=== PATIENT | female | born 1950 | race Caucasian/White ===

== ENCOUNTER → 2016-06-04 | Outpatient (CLI) | payer MEDICARE, BC ==
[~2016-06-04] MED LIST: CEPHALEXIN500 M1 PO; FLUTICASON0.05 MG/AC IN; ZYRTEC10 M3 PO
== END ==
LOC: LAB 09:26
DX: K62.5 Hemorrhage of anus and rectum (principal)

== ENCOUNTER → 2016-06-11 | Day surgery (SDC) | payer MEDICARE, BC | LOC: MSO 15:04 | DX: Z12.11 Encounter for screening for malignant neoplasm of colon (principal); R19.5 Other fecal abnormalities; K64.1 Second degree hemorrhoids | CPT/HCPCS: 00810; J3010; J7120 ==

== ENCOUNTER → 2016-08-20 | Outpatient (CLI) | payer MEDICARE, BC ==
[2015-12-25 12:06] VITALS: BP 112/76
== END ==
LOC: MAMMO 09:10
DX: Z12.31 Encounter for screening mammogram for malignant neoplasm of breast (principal)
CPT/HCPCS: G0202

== ENCOUNTER → 2016-08-20 | Outpatient (CLI) | payer MEDICARE, BC ==
[2015-12-25 12:06] VITALS: BP 112/76
== END ==
LOC: RAD 09:10
DX: M81.0 Age-related osteoporosis without current pathological fracture (principal); Z13.820 Encounter for screening for osteoporosis

== ENCOUNTER → 2016-09-26 | Outpatient (CLI) | payer MEDICARE, BC ==
[2015-12-25 12:06] VITALS: BP 112/76
== END ==
LOC: LAB 14:17
DX: Z78.9 Other specified health status (principal)

== ENCOUNTER → 2016-09-28 | Outpatient (CLI) | payer MEDICARE, BC ==
[2015-12-25 12:06] VITALS: BP 112/76
== END ==
LOC: LAB 16:44
DX: R50.81 Fever presenting with conditions classified elsewhere (principal); M79.1 Myalgia; W57.XXXA Bitten or stung by nonvenomous insect and other nonvenomous arthropods, initial encounter

== ENCOUNTER → 2017-10-07 | Outpatient (CLI) | payer MEDICARE, BC ==
[2015-12-25 12:06] VITALS: BP 112/76
== END ==
LOC: MAMMO 13:05
DX: Z13.820 Encounter for screening for osteoporosis (principal); M85.852 Other specified disorders of bone density and structure, left thigh; M85.851 Other specified disorders of bone density and structure, right thigh; M85.88 Other specified disorders of bone density and structure, other site

== ENCOUNTER → 2017-10-07 | Outpatient (CLI) | payer MEDICARE, BC ==
[2015-12-25 12:06] VITALS: BP 112/76
== END ==
LOC: MAMMO 13:00
DX: Z12.31 Encounter for screening mammogram for malignant neoplasm of breast (principal)

== ENCOUNTER → 2017-10-09 | Outpatient (CLI) | payer MEDICARE, BC ==
[2015-12-25 12:06] VITALS: BP 112/76
[2017-10-09 19:22] LABS: HEMATOCRIT 39.6 % (37.0-47.0); HEMOGLOBIN 13.2 g/dL (12.5-16.0); MEAN CELL VOLUME 90 fl (78-100); MEAN CORPUSCULAR HEMOGLOBIN 30 pg (27-31); MEAN CORPUSCULAR HGB CONC 33 g/dL (33-37); PLATELET COUNT 223 K/mm3 (130-400); RED BLOOD COUNT 4.41 M/mm3 (4.10-5.30); RED CELL DISTRIBUTION WIDTH 13.3 % (11.5-14.5); WHITE BLOOD COUNT 3.8 K/mm3 (4.8-10.8)
[2017-10-09 19:45] LABS: ALBUMIN 3.9 g/dL (3.5-5.0); BUN/CREATININE RATIO 22.8 (6.0-26.0); CALCIUM 10.6 mg/dL (8.4-10.2); POTASSIUM 4.1 mmol/L (3.6-5.0); TOTAL BILIRUBIN 0.5 mg/dL (0.2-1.3); TOTAL PROTEIN 7.3 g/dL (6.3-8.2)
[2017-10-09 22:32] LABS: LYMPHOCYTE 43 % (20-51); MONOCYTE 12 % (3-10); NEUTROPHILS 43 % (42-75)
== END ==
LOC: LAB 18:16
PROVIDERS: Nurse Practitioner Family
DX: R53.81 Other malaise (principal); M25.50 Pain in unspecified joint; S30.860A Insect bite (nonvenomous) of lower back and pelvis, initial encounter

== ENCOUNTER → 2018-10-06 | Outpatient (CLI) | payer MEDICARE, BC ==
[2015-12-25 12:06] VITALS: BP 112/76
== END ==
LOC: MAMMO 13:44
DX: Z12.31 Encounter for screening mammogram for malignant neoplasm of breast (principal)

== ENCOUNTER → 2019-02-18 | Outpatient (CLI) | payer MEDICARE, BC ==
[2019-01-04 10:20] VITALS: BP 154/84
== END ==
LOC: RAD 09:10
DX: R05 Cough (principal)

== ENCOUNTER → 2019-08-19 | Outpatient (CLI) | payer MEDICARE, BC ==
[2019-01-04 10:20] VITALS: BP 154/84
== END ==
LOC: LAB 09:08
DX: J02.9 Acute pharyngitis, unspecified (principal); Z95.2 Presence of prosthetic heart valve; W19.XXXA Unspecified fall, initial encounter

== ENCOUNTER → 2019-12-01 | Outpatient (CLI) | payer MEDICARE, BC ==
[2019-01-04 10:20] VITALS: BP 154/84
== END ==
LOC: RAD 08:29 → MAMMO 09:15
DX: M85.80 Other specified disorders of bone density and structure, unspecified site (principal)

== ENCOUNTER → 2019-12-01 | Outpatient (CLI) | payer MEDICARE, BC ==
[2019-01-04 10:20] VITALS: BP 154/84
== END ==
LOC: MAMMO 08:29
DX: Z12.31 Encounter for screening mammogram for malignant neoplasm of breast (principal); M81.0 Age-related osteoporosis without current pathological fracture

== ENCOUNTER → 2020-02-09 | Outpatient (CLI) | payer MEDICARE, BC ==
[2019-01-04 10:20] VITALS: BP 154/84
== END ==
LOC: LAB 08:06
DX: J02.9 Acute pharyngitis, unspecified (principal); J34.89 Other specified disorders of nose and nasal sinuses; Z20.828 Contact with and (suspected) exposure to other viral communicable diseases

== ENCOUNTER → 2020-02-17 | Outpatient (CLI) | payer MEDICARE, BC ==
[2019-01-04 10:20] VITALS: BP 154/84
[2020-02-17 07:22] LABS: ALBUMIN 4.4 g/dL (3.4-4.8); POTASSIUM 4.1 mmol/L (3.5-5.1)
[2020-02-17 07:23] LABS: CALCIUM 9.5 mg/dL (8.3-10.5)
[2020-02-17 07:24] LABS: TOTAL PROTEIN 7.6 g/dL (6.2-8.1)
[2020-02-17 07:26] LABS: TOTAL BILIRUBIN 0.6 mg/dL (0.2-1.2)
== END ==
LOC: LAB 07:02
PROVIDERS: Family Medicine
DX: E78.00 Pure hypercholesterolemia, unspecified (principal)

== ENCOUNTER → 2020-02-29 | Outpatient (CLI) | payer MEDICARE, BC ==
[2019-01-04 10:20] VITALS: BP 154/84
[2020-02-29 16:24] LABS: ALBUMIN 4.2 g/dL (3.4-4.8); POTASSIUM 3.7 mmol/L (3.5-5.1)
[2020-02-29 16:25] LABS: CALCIUM 9.5 mg/dL (8.3-10.5)
[2020-02-29 16:27] LABS: TOTAL PROTEIN 7.2 g/dL (6.2-8.1)
[2020-02-29 16:28] LABS: TOTAL BILIRUBIN 0.3 mg/dL (0.2-1.2)
[2020-02-29 16:32] LABS: DIRECT BILIRUBIN 0.1 mg/dL (0.0-0.5)
== END ==
LOC: LAB 15:56
PROVIDERS: Internal Medicine Endocrinology, Diabetes & Metabolism
DX: E78.00 Pure hypercholesterolemia, unspecified (principal); M81.8 Other osteoporosis without current pathological fracture

== ENCOUNTER 2020-10-29 21:58 | Emergency (ER) | payer MEDICARE, BC ==
[2020-10-29] MEDS ORDERED: PROSCAR PO (22:48)
[2020-10-29] MEDS ORDERED: ALDACTONE100 M1 PO (22:49)
[2020-10-29] MEDS ORDERED: CALCIUM + D3 E1 EACH PO (22:49)
[2020-10-29] MEDS ORDERED: CRESTOR 10MG10 MG PO (22:49)
[2020-10-29 23:24] LABS: URINE APPEARANCE CLOUDY; URINE COLOR BLOODY
[2020-10-29 23:25] LABS: PH-URINE 5.5 (5.0 - 8.0); URINE BILIRUBIN NEGATIVE (NEGATIVE); URINE BLOOD 250 ery/uL (NEGATIVE); URINE GLUCOSE NEGATIVE (NEGATIVE); URINE KETONE 1+ (NEGATIVE); URINE LEUKOCYTE ESTERASE 2+ (NEGATIVE); URINE NITRATE NEGATIVE (NEGATIVE); URINE PROTEIN(semi-quant) 3+ mg/dL (NEGATIVE); URINE UROBILINOGEN NORMAL (NORMAL); URINE WBC >50 /hpf (0-3)
[2020-10-29] MEDS ORDERED: MACROBID 100 M100 MG PO (23:34)
[2020-10-30 00:02] VITALS: BP 136/95
== END 2020-10-30 00:02 | disposition home or self-care (01) ==
LOC: ED 21:58
PROVIDERS: Nurse Practitioner Family
DX: N39.0 Urinary tract infection, site not specified (principal); Z88.0 Allergy status to penicillin; Z88.1 Allergy status to other antibiotic agents
CPT/HCPCS: J1885

== ENCOUNTER → 2021-02-10 | Outpatient (CLI) | payer MEDICARE, BC ==
[~2021-02-10] MED LIST changes: +ALDACTONE100 M1 PO; +CALCIUM + D3 E1 EACH PO; +CRESTOR 10MG10 MG PO; +MACROBID 100 M100 MG PO; +PROSCAR PO
== END ==
LOC: LAB 08:43
DX: N39.0 Urinary tract infection, site not specified (principal)

== ENCOUNTER → 2021-03-21 | Outpatient (CLI) | payer MEDICARE, BC | LOC: MAMMO 09:15 | DX: Z12.31 Encounter for screening mammogram for malignant neoplasm of breast (principal) ==

== ENCOUNTER → 2021-03-22 | Outpatient (CLI) | payer MEDICARE, BC ==
[2021-03-22 07:39] LABS: ALBUMIN 4.2 g/dL (3.4-4.8); POTASSIUM 4.3 mmol/L (3.5-5.1)
[2021-03-22 07:40] LABS: CALCIUM 9.3 mg/dL (8.3-10.5)
[2021-03-22 07:43] LABS: TOTAL BILIRUBIN 0.5 mg/dL (0.2-1.2)
== END ==
LOC: LAB 07:05
PROVIDERS: Family Medicine
DX: Z13.220 Encounter for screening for lipoid disorders (principal); Z13.1 Encounter for screening for diabetes mellitus; M81.0 Age-related osteoporosis without current pathological fracture

== ENCOUNTER → 2021-04-26 | Outpatient (CLI) | payer MEDICARE, BC ==
[2021-04-26 15:37] LABS: ALBUMIN 4.4 g/dL (3.4-4.8); POTASSIUM 3.8 mmol/L (3.5-5.1)
[2021-04-26 15:39] LABS: TOTAL PROTEIN 7.4 g/dL (6.2-8.1)
[2021-04-26 15:41] LABS: TOTAL BILIRUBIN 0.3 mg/dL (0.2-1.2)
== END ==
LOC: LAB 15:14
PROVIDERS: Internal Medicine Endocrinology, Diabetes & Metabolism
DX: K64.9 Unspecified hemorrhoids (principal); E04.1 Nontoxic single thyroid nodule; E55.9 Vitamin D deficiency, unspecified; T78.40XA Allergy, unspecified, initial encounter; M81.8 Other osteoporosis without current pathological fracture

== ENCOUNTER → 2021-11-24 | Outpatient (CLI) | payer MEDICARE, BC ==
[2021-11-24 10:47] LABS: ALBUMIN 4.5 g/dL (3.4-4.8); POTASSIUM 4.2 mmol/L (3.5-5.1)
[2021-11-24 10:48] LABS: CALCIUM 10.4 mg/dL (8.3-10.5)
[2021-11-24 10:49] LABS: TOTAL PROTEIN 7.7 g/dL (6.2-8.1)
[2021-11-24 10:51] LABS: TOTAL BILIRUBIN 0.3 mg/dL (0.2-1.2)
== END ==
LOC: LAB 10:09
PROVIDERS: Nurse Practitioner Family
DX: U07.1 COVID-19 (principal)

== ENCOUNTER → 2021-12-17 | Outpatient (CLI) | payer MEDICARE, BC | LOC: LAB 08:38 | DX: N39.0 Urinary tract infection, site not specified (principal) ==

== ENCOUNTER → 2022-01-11 | Outpatient (CLI) | payer MEDICARE, BC | LOC: RAD 10:05 | DX: N39.0 Urinary tract infection, site not specified (principal) ==

== ENCOUNTER → 2022-03-26 | Outpatient (CLI) | payer MEDICARE, BC | LOC: MAMMO 13:00 | DX: Z12.31 Encounter for screening mammogram for malignant neoplasm of breast (principal) ==

== ENCOUNTER → 2022-04-03 | Outpatient (CLI) | payer MEDICARE, BC | LOC: RAD 03-26 13:09 → MAMMO 03-26 13:45 → RAD 09:15 | DX: Z13.820 Encounter for screening for osteoporosis (principal); Z13.1 Encounter for screening for diabetes mellitus; M81.0 Age-related osteoporosis without current pathological fracture ==

== ENCOUNTER → 2022-05-08 | Outpatient (CLI) | payer MEDICARE, BC ==
[2022-05-08 11:05] LABS: ALBUMIN 4.4 g/dL (3.4-4.8)
[2022-05-08 11:06] LABS: POTASSIUM 5.1 mmol/L (3.5-5.1)
[2022-05-08 11:07] LABS: CALCIUM 10.1 mg/dL (8.3-10.5)
[2022-05-08 11:08] LABS: TOTAL PROTEIN 7.2 g/dL (6.2-8.1)
[2022-05-08 11:31] LABS: TOTAL BILIRUBIN 0.3 mg/dL (0.2-1.2)
== END ==
LOC: LAB 10:39
PROVIDERS: Internal Medicine Endocrinology, Diabetes & Metabolism
DX: M81.8 Other osteoporosis without current pathological fracture (principal)

== ENCOUNTER → 2023-04-24 | Outpatient (CLI) | payer MEDICARE, BC | LOC: MAMMO 08:30 | DX: Z12.31 Encounter for screening mammogram for malignant neoplasm of breast (principal); N63.15 Unspecified lump in the right breast, overlapping quadrants ==

== ENCOUNTER → 2023-05-05 | Outpatient (CLI) | payer MEDICARE, BC | LOC: MAMMO 04-23 09:00 | DX: N63.15 Unspecified lump in the right breast, overlapping quadrants (principal) | CPT/HCPCS: 15989; 15990; A4648 ==

== ENCOUNTER → 2023-11-18 | Outpatient (CLI) | payer MEDICARE, BC | LOC: MAMMO 07:06 | DX: N63.10 Unspecified lump in the right breast, unspecified quadrant (principal) ==

== ENCOUNTER → 2024-05-20 | Outpatient (CLI) | payer MEDICARE, BC | LOC: MAMMO 14:57 | DX: Z12.31 Encounter for screening mammogram for malignant neoplasm of breast (principal) ==